=== PATIENT | male | born 1955 | race Caucasian/White ===

== ENCOUNTER 2022-09-16 08:13 | Outpatient (CLI) | payer MEDICARE, SELFPAY | END 2022-09-16 08:14 | disposition home or self-care (01) | PROVIDERS: PCP Internal Medicine; Visit Provider Internal Medicine | DX: Z00.00 Encounter for general adult medical examination without abnormal findings (principal); Z13.6 Encounter for screening for cardiovascular disorders; Z12.5 Encounter for screening for malignant neoplasm of prostate | CPT/HCPCS: 80053; 80061; 84153 ==

== ENCOUNTER 2024-07-19 08:45 | Outpatient (CLI) | payer MEDICARE, OTHER, SELFPAY | END 2024-07-19 08:46 | disposition home or self-care (01) | LOC: NFLDREF 07-20 00:37 | PROVIDERS: PCP Internal Medicine; Referring Provider Internal Medicine; Visit Provider Internal Medicine | DX: I10 Essential (primary) hypertension (principal); Z13.220 Encounter for screening for lipoid disorders; Z12.5 Encounter for screening for malignant neoplasm of prostate | CPT/HCPCS: 80053; 80061; G0103 ==

== ENCOUNTER 2025-01-26 07:45 | Outpatient (RCR) | payer MEDICARE, OTHER, SELFPAY | END 2025-01-26 10:24 | disposition home or self-care (01) | PROVIDERS: PCP Internal Medicine; Visit Provider Family Medicine | DX: M77.12 Lateral epicondylitis, left elbow (principal); Z51.89 Encounter for other specified aftercare | CPT/HCPCS: 97110; 97165; 97530; X5282 ==